=== PATIENT | female | born 1960 | race African-American/Black ===

== ENCOUNTER 2017-12-14 08:43 | Emergency (ER) | payer MEDICAID ==
[~2017-12-14 08:43] MED LIST: ALPR0.25 PO; GABA300C3 PO; GLIP5 PO; GLUC1000 PO; HYDR-3533 PO; LISI-363 PO; METHO500 PO; THYR15 PO; WAL-10TA2 PO; ZOCO40TA PO
[2017-12-14 08:50] VITALS: BP 117/82; PULSE 82; RESP 16; TEMP 97.5; O2SAT 96
--- NOTE | 2017-12-14 09:08 | PD ---
HPI Chief Complaint: ENT Complaint Time Seen by Provider: 08:57 Travel History International Travel<30 days: No Contact w/Intl Traveler<30days: No Traveled to known affect area: No History of Present Illness HPI This is a 57-year-old female who presents for evaluation. For 1 week she has had a sore throat and cough. Cough is productive with clear mucus. Symptoms are worse at night. She denies any fevers, chills. In addition the patient is complaining of left leg and lower back pain. Symptoms have been intermittent for 1 year. Pain is sharp pain in her lower back and left leg with no aggravating or relieving factors. Denies incontinence, abdominal pain, weight change, nausea or vomiting, numbness or tingling or weakness. She has not been using any medication for symptom relief. No other complaints. PFSH Past Medical History Depression: Yes Cardiovascular Problems: Yes (HTN) High Cholesterol: Yes Diabetes: Yes (TAKES ORAL MEDS) Diminished Hearing: No Hypertension: Yes Thyroid Disease: Yes Menopausal: Yes Past Surgical History Gynecologic Surgery: Yes Other Surgery: Yes (HAND) Social History Alcohol Use: No Tobacco Use: No Substance Use: No Allergies-Medications (Allergen,Severity, Reaction): Coded Allergies: No Known Allergies (Unverified , 07/09/15) Reported Meds & Prescriptions Reported Meds & Active Scripts Active Tessalon Perles (Benzonatate) 100 Mg Cap 100 Mg PO TID PRN Diclofenac Sodium DR (Diclofenac Sodium) 75 Mg Tabdr 75 Mg PO BID 7 Days Lortab 5 mg/325 mg (Hydrocodone/Acetaminophen 5 mg/325 mg) 1 Tab 1 Tab PO Q6H PRN Reported Gabapentin 300 Mg Cap 300 Mg PO BID Robaxin 500 Mg Tab (Methocarbamol) 500 Mg Tab 500 Mg PO BID PRN Glucophage 1000 mg (Metformin HCl) 1,000 Mg Tab 1,000 Mg PO BID Alprazolam 0.25 Mg Tab 0.25 Mg PO DAILY PRN [place] Thyroid (Thyroid) 15 Mg Tab 15 Mg PO DAILY Lisinopril 20 mg (Lisinopril) 20 Mg Tab 20 Mg PO DAILY Zocor 40 mg (Simvastatin) 40 Mg Tab 40 Mg PO HS Loratadine 10 Mg Tab 10 Mg PO DAILY Glipizide 5 Mg Tab 5 Mg PO DAILY Review of Systems Except as stated in HPI: all other systems reviewed are Neg Physical Exam Narrative GENERAL: Well-developed well-nourished female no acute distress SKIN: Warm and dry. HEAD: Atraumatic. Normocephalic. EYES: Pupils equal and round. No scleral icterus. No injection or drainage. ENT: No nasal bleeding or discharge. Mucous membranes pink and moist. No oral pharyngeal erythema or exudate NECK: Trachea midline. No JVD. No lymphadenopathy CARDIOVASCULAR: Regular rate and rhythm. No murmur appreciated. RESPIRATORY: No accessory muscle use. Clear to auscultation. Breath sounds equal bilaterally. No crackles no wheezing no rhonchi GASTROINTESTINAL: Abdomen soft, non-tender, nondistended. Hepatic and splenic margins not palpable. MUSCULOSKELETAL: No obvious deformities. There is no reproducible tenderness to palpation of the back, legs. There is no lower extremity edema. Negative Homans. 2+ dorsalis pedis pulse bilaterally. Full range of motion of the lower extremities preserved. NEUROLOGICAL: Awake and alert. No obvious cranial nerve deficits. Motor grossly within normal limits. Normal speech. Data Data Last Documented VS Vital Signs Date Time Temp Pulse Resp B/P (MAP) Pulse Ox O2 Delivery O2 Flow Rate FiO2 12/14/17 08:50 97.5 82 16 117/82 (94) 96 Orders Orders Spine, Lumbar - Ltd (Ap & Lat) (12/14/17 ) Ed Discharge Order (12/14/17 10:09) MDM Medical Decision Making Medical Screen Exam Complete: Yes Emergency Medical Condition: Yes Medical Record Reviewed: Yes Differential Diagnosis Herniated nucleus pulposus, compression fracture, malignancy, muscle spasm, DVT , intermittent claudication Bronchitis, pneumonia, influenza, pharyngitis Narrative Course The patient appears well. She appears to have a viral upper respiratory infection. Her lower extremity symptoms are consistent with lumbosacral radiculopathy. Given her age, an x-ray of the lumbar spine was obtained revealing degenerative changes with no acute findings. The patient will be discharged with a short course of Tessalon and diclofenac. Diagnosis Primary Impression: Lumbosacral radiculopathy Additional Impression: Upper respiratory infection Additional Instructions: Medication as needed. Follow-up with primary care physician in 2 weeks. Return for any emergent medical conditions. Med/Other Pt SpecificInfo: Prescription(s) given Scripts Benzonatate (Tessalon Perles) 100 Mg Cap 100 MG PO TID Y for COUGH, #30 CAP 0 Refills Prov: Naldo Brown MD 12/14/[address] (Diclofenac Sodium DR) 75 Mg Tabdr 75 MG PO BID for 7 Days, #14 TAB 0 Refills Prov: Naldo Brown MD 12/14/17 Disposition: 01 DISCHARGE HOME Condition: Stable Ernie Austin Dec 14, 2017 09:08
--- NOTE | 2017-12-14 09:49 | RADRPT ---
EXAM DATE/TIME: 12/14/2017 09:24 [facility] COMPARISON: No previous studies available for comparison. INDICATIONS : Pain in lower, left leg. MEDICAL HISTORY : None. SURGICAL HISTORY : None. ENCOUNTER: Initial ACUITY: 1 year PAIN SCORE: 5/10 LOCATION: Lumbar. FINDINGS: There is minimal loss vertebral body height at L3-L4 and L5. There is minimal loss of disc space hei ght at L4-5 and L5-S1. There mild changes in the facets. SI joints are normal. CONCLUSION: Mild degenerative changes. Minimal loss of vertebral body heights as above. Carlos Barnes MD FACR on December 14, 2017 at 9:46 Board Certified Radiologist. This report was verified electronically.
[2017-12-14] MEDS ORDERED: BENZ100 PO (10:10)
[2017-12-14] MEDS ORDERED: DICL75TA PO (10:10)
== END 2017-12-14 10:48 | disposition home or self-care (01) ==
LOC: NEPD 08:43
DX: M54.17 Radiculopathy, lumbosacral region (principal); J06.9 Acute upper respiratory infection, unspecified; E07.9 Disorder of thyroid, unspecified; E11.9 Type 2 diabetes mellitus without complications; E78.00 Pure hypercholesterolemia, unspecified; I10 Essential (primary) hypertension; Z79.84 Long term (current) use of oral hypoglycemic drugs
CPT/HCPCS: 72100; 99283